=== PATIENT | male | born 1990 | race Caucasian/White ===

== ENCOUNTER → 2017-04-04 | Emergency (ER) | payer OTHER ==
[~2017-04-04] VITALS: Ht 165.1 cm; Wt 62.6 kg
[~2017-04-04] MED LIST: AMOX1TAB12 PO; CIPRO500 MG PO; KETO10TA2 PO; PEPCID40 MG PO; PRILOSEC20 MG PO; ZOFRAN4 MG SL; ZOFRAN8 MG PO
== END | disposition home or self-care (01) ==
LOC: ER 17:59
DX: B34.9 Viral infection, unspecified (principal); H66.93 Otitis media, unspecified, bilateral

== ENCOUNTER 2018-02-07 19:43 | Emergency (ER) | payer OTHER ==
[~2018-02-07] VITALS: Ht 170.2 cm; Wt 72.6 kg
== END 2018-02-07 22:11 | disposition home or self-care (01) ==
LOC: ER 19:43
DX: J09.X2 Influenza due to identified novel influenza A virus with other respiratory manifestations (principal)

== ENCOUNTER 2019-12-01 21:34 | Emergency (ER) | payer OTHER ==
[~2019-12-01] VITALS: Ht 167.6 cm; Wt 77.1 kg
[2019-12-02] MEDS ORDERED: INTESTINEX680 M1 PO (06:54)
[2019-12-02] MEDS ORDERED: METRONIDAZOLE500 MG PO (06:54)
[2019-12-02] MEDS ORDERED: CIPRO500 MG PO (06:54)
== END 2019-12-02 13:13 | disposition home or self-care (01) ==
LOC: ER 21:34
DX: A09 Infectious gastroenteritis and colitis, unspecified (principal); Z03.818 Encounter for observation for suspected exposure to other biological agents ruled out

== ENCOUNTER 2020-08-14 08:00 | Outpatient (CLI) | payer OTHER ==
[~2020-08-14 08:00] MED LIST changes: +INTESTINEX680 M1 PO; +METRONIDAZOLE500 MG PO
== END 2020-08-14 08:30 | disposition home or self-care (01) ==
LOC: PPH VACUNA 08:00
DX: Z23 Encounter for immunization (principal)

== ENCOUNTER 2020-09-05 08:00 | Outpatient (CLI) | payer OTHER | END 2020-09-05 08:30 | disposition home or self-care (01) | LOC: PPH VACUNA 08:00 | DX: Z23 Encounter for immunization (principal) ==

== ENCOUNTER 2021-01-27 09:53 | Emergency (ER) | payer OTHER ==
[~2021-01-27] VITALS: Ht 162.6 cm; Wt 81.6 kg
== END 2021-01-27 14:15 | disposition home or self-care (01) ==
LOC: ER 09:53
DX: K52.89 Other specified noninfective gastroenteritis and colitis (principal)

== ENCOUNTER 2021-06-19 12:31 | Emergency (ER) | payer OTHER ==
[~2021-06-19] VITALS: Ht 162.6 cm; Wt 81.6 kg
[2021-06-19] MEDS ORDERED: OSEL75CA PO (15:44)
== END 2021-06-19 15:50 | disposition home or self-care (01) ==
LOC: ER 12:31
DX: B34.9 Viral infection, unspecified (principal); Z20.822 Contact with and (suspected) exposure to COVID-19